=== PATIENT | male | born 1975 | race Caucasian/White ===

== ENCOUNTER 2018-04-14 21:41 | Inpatient (IN) | payer OTHER ==
[~2018-04-14] VITALS: Ht 167.6 cm; Wt 106.6 kg
[~2018-04-14 21:41] MED LIST: AUGMENTIN 875-1 EACH PO; FLONASE 0.05%50 MCG NASAL; PRILOSEC OTC20 MG PO; PROMETHAZINE-D120 ML PO; VENTOLIN HFA INH8 GM IH
[2018-04-14 21:46] VITALS: BP 128/85
[2018-04-14] MEDS ORDERED: BRINTELLIX5 MG PO (21:53)
[2018-04-14 22:34] LABS: HEMOGLOBIN 14.1 gm/dL (14.0-18.0); MCH 30.5 pg (26.0-34.0); MCHC 34.4 g/dL (28.0-37.0); MCV 88.8 fL (80.0-100.0); NUCLEATED RBCS 0 /100WBC; PLATELET COUNT* 106 thou/uL (150-400); RBC 4.62 mil/uL (4.50-6.00); RDW-CV 13.4 % (10.5-14.5); WBC 10.2 thou/uL (4.0-11.0)
[2018-04-14 22:42] LABS: CALCIUM 8.5 mg/dL (8.5-10.1); CREATININE 1.2 mg/dL (0.6-1.3); POTASSIUM 3.5 mmol/L (3.5-5.1)
[2018-04-14 22:45] LABS: APTT 32.3 Seconds (25.0-31.3); INR 1.1; PROTIME 11.4 Seconds (9.20-11.50)
[2018-04-14 22:47] LABS: TOTAL BILIRUBIN 1.2 mg/dL (<0.1-1.0); TOTAL PROTEIN 6.9 g/dL (6.4-8.2)
[2018-04-14 23:05] LABS: ABSOLUTE BASOPHILS 0.1 thou/uL (0.0-0.2); ABSOLUTE LYMPHOCYTES 0.3 thou/uL (0.8-5.3); ABSOLUTE MONOCYTES 0.7 thou/uL (0.0-1.2); ABSOLUTE NEUTROPHILS 9.1 thou/uL (1.6-8.1); PLATELET ESTIMATE DECREASED
[2018-04-14 23:06] LABS: ANISOCYTOSIS 1+; TOXIC GRANULATION 1+
[2018-04-14 23:52] VITALS: BP 116/80
[2018-04-15 01:15] VITALS: BP 119/78
--- NOTE | 2018-04-15 01:49 | NUR ---
PATIENT ARRIVED FROM ER ALERT AND ORIENTED. ORIENTED TO ROOM AND BED CONTROLS. PO PAIN MEDICATION GIVEN. ASSESSMENT CHARTED. RIGHT FOOT RED AND SWOLLEN AND TENDER TO TOUCH. BED ALARM ON AND AT BEDSIDE.
--- NOTE | 2018-04-15 06:56 | NUR ---
ALERT AND ORIENTED X4. RIGHT FOOT REMAINS SWOLLEN AND RED. RED AREAS ON LOWER LEG MARKED WITH OUTLINE. AT BEDSIDE. TRIED IV AND PO PAIN MEDICATION TO HELP WITH BACK AND RIGHT LEG PAIN WITH ONLY A LITTLE RELIEF. DR ROBERT THIS AM AND NEW ORDER NOTED. CALL LIGHT WITHIN REACH.
[2018-04-15 10:02] VITALS: BP 120/82
[2018-04-15 14:38] LABS: ABSOLUTE LYMPHOCYTES 0.6 thou/uL (0.8-5.3); ABSOLUTE MONOCYTES 0.8 thou/uL (0.0-1.2); ABSOLUTE NEUTROPHILS 6.6 thou/uL (1.6-8.1); BASOPHILS 0.4 %; EOSINOPHILS 0.1 %; HEMATOCRIT 38.9 % (42.0-52.0); HEMOGLOBIN 13.4 gm/dL (14.0-18.0); LYMPHOCYTES 7.2 %; MCH 30.6 pg (26.0-34.0); MCHC 34.4 g/dL (28.0-37.0); MONOCYTES 9.5 %; MPV 7.8 fl. (7.2-11.1); NUCLEATED RBCS 0 /100WBC; PLATELET COUNT* 115 thou/uL (150-400); POLYS 82.8 %; RBC 4.37 mil/uL (4.50-6.00); RDW-CV 13.4 % (10.5-14.5)
[2018-04-15 14:52] LABS: ALBUMIN 2.8 g/dL (3.4-5.0); CALCIUM 8.2 mg/dL (8.5-10.1); CREATININE 1.5 mg/dL (0.6-1.3); POTASSIUM 3.4 mmol/L (3.5-5.1); TOTAL BILIRUBIN 1.2 mg/dL (<0.1-1.0); TOTAL PROTEIN 6.7 g/dL (6.4-8.2)
--- NOTE | 2018-04-15 17:05 | NUR ---
ASSUMED CARE OF PATIENT AFTER MORNING REPORT AT APPROX 0740. ALERT AND ORIENTED X4. ASSESSMENT COMPLETED AND CHARTED. VSS ON ROOM AIR. PATIENT HAS NO COMPLAINTS OF NAUSEA, OR SOA. COMPLAINTS OF SEVERE BACK PAIN, BEING MANAGED WITH PAIN MEDICATION AND MUSCLE RELAXERS. FLUIDS AND ANTIBIOTICS INFUSED ORDERED. PATIENT HAD AN MRI OF THE RIGHT FOOT WHICH SHOWS CELLULITIS. BLOOD CULTURES FROM BOTH SOURCES ARE POSITIVE FOR GRAM POSITIVE COCCI. PATEINTS VITALS AT 1700 ARE 135/79, PULSE OF 100, TEMP 99.6. LIVER FUNCTION LABS ELEVATED. PATIENT IN BED LAYING ON HIS STOMACH DUE TO BACK PAIN, K-PAD APPLIED TO BACK. WILL NOTIFY PHYSICIAN OF VS CHANGES. HOURLY ROUNDS MAINTAINED, CALL LIGHT WITHIN REACH, NURSING WILL CONTINUE TO MONITOR.
[2018-04-15 17:12] VITALS: BP 135/79
--- NOTE | 2018-04-15 18:29 | NUR ---
SPOKE TO DR BRITO OVER THE PHONE, RELAYED RESULTS FROM MRI TO HIM AND SHARED LATEST VITALS WITH ELEVATED TEMP. HE STATED TO DISCONTINUE THE NPO AFTER MIDNIGHT ORDER, RESUME REGULAR DIET AND THAT HE WILL SEE THE PATIENT TOMORROW AFTERNOON TO DISCUSS FURTHER TREATMENT PLAN.
[2018-04-15 20:37] LABS: CALCIUM 7.8 mg/dL (8.5-10.1); CREATININE 1.4 mg/dL (0.6-1.3); MAGNESIUM 1.8 mg/dL (1.8-2.4); POTASSIUM 3.3 mmol/L (3.5-5.1)
[2018-04-15 21:30] VITALS: BP 121/75
[2018-04-15 23:58] VITALS: BP 127/76
[2018-04-16 04:00] VITALS: BP 125/84
[2018-04-16 04:29] LABS: HEMATOCRIT 36.5 % (42.0-52.0); HEMOGLOBIN 12.4 gm/dL (14.0-18.0); MCH 30.6 pg (26.0-34.0); MCHC 34.1 g/dL (28.0-37.0); MCV 89.9 fL (80.0-100.0); MPV 7.9 fl. (7.2-11.1); RBC 4.06 mil/uL (4.50-6.00); RDW-CV 13.5 % (10.5-14.5); WBC 7.9 thou/uL (4.0-11.0)
[2018-04-16 04:52] LABS: ALBUMIN 2.4 g/dL (3.4-5.0); CALCIUM 7.8 mg/dL (8.5-10.1); CREATININE 1.1 mg/dL (0.6-1.3); MAGNESIUM 1.8 mg/dL (1.8-2.4); POTASSIUM 3.6 mmol/L (3.5-5.1); TOTAL BILIRUBIN 1.1 mg/dL (<0.1-1.0)
--- NOTE | 2018-04-16 05:32 | NUR ---
ALERT AND ORIENTED X4. REMAINED IN BED THIS SHIFT. REPOSITIONING SELF. USING PO PAIN MEDICATION TO HELP WITH BACK AND RIGHT FOOT PAIN. NO C/O N/V. RIGHT FOOT REMAINS RED AND SWOLLEN WITH LIGHT PINK STREAKS ABOVE ANKLE. CONTINUES ON IV ANTIBIODICS AND IVF. CALL LIGHT WITHIN REACH.
[2018-04-16 08:35] VITALS: BP 140/95
[2018-04-16 14:41] LABS: CHOLESTEROL 114 mg/dL (<200); HDL CHOLESTEROL 9 mg/dL (>40); LDL CHOLESTEROL 49 mg/dL (<100); TC:HDL 12.7 Ratio (Not establshd); TRIGLYCERIDE 280 mg/dL (<150); VLDL 56 mg/dL (<40)
[2018-04-16 14:43] LABS: SERUM ASSESSMENT Clear
[2018-04-16 16:00] VITALS: BP 146/84
--- NOTE | 2018-04-16 18:03 | NUR ---
PT REMAINED ALERT AND ORIENTED THIS SHIFT. PT HAS CELLULITIS OF THE ELFT FOOT, SWELLING, REDNESS, AND PAIN AHVE DECREASED. CREAM ORDERED FOR ATHLETES FOOT INBETWEEN TOES. TUBIGRIPS ORDERED, WOUND CARE NURSE WILL APPLY IN THE MORNING. PT HAS C/O BACK PAIN, OXY IR AND IBUPROFEN GIVEN. K-PAD APPLIED TO BACK. US ABD ORDERED FOR TOMORROW, PT WILL BE NPO AFTER MIDNIGHT. VANC TROUGH TAKEN, LEVEL LOW, VANC DOSAGE INCREASED BY PHARMACY AND HUNG. CALL LIGHT IN REACH. WILL CONTINUE TO MONITOR.
[2018-04-16 23:56] VITALS: BP 124/94
[2018-04-17 05:09] LABS: GLYCOHEMOGLOBIN (HGB A1C) 5.2 % (4.8-5.6)
[2018-04-17 06:19] LABS: ALBUMIN 2.4 g/dL (3.4-5.0); POTASSIUM 4.1 mmol/L (3.5-5.1); TOTAL BILIRUBIN 1.1 mg/dL (<0.1-1.0); TOTAL PROTEIN 6.2 g/dL (6.4-8.2)
--- NOTE | 2018-04-17 06:36 | NUR ---
PT UP AND SHOWERED WITH ASSIST OF FAMILY BEFORE BED. RAC IVF INFUSING PER PUMP, ABX GIVEN ORDERED. PT HAS BEEN NPO SINCE MIDNIGHT FOR ABD US TODAY. HAS DENIED NEED FOR PAIN MED THIS SHIFT. AM LAB DRAWN. MRSA NEGATIVE. USING URINAL TO VOID OVERNIGHT. ABLE TO USE CALL LITE AND MAKE NEEDS KNOWN.
--- NOTE | 2018-04-17 07:54 | CON ---
[facility] [address] [place] [address] CONSULTATION Name: LIVIER GORMAN Room: [address] IN .R.#: [id number] Admission: 04/14/18 Attend Phys: Jhon Grubbs, Discharge: Date of : 71 Report #: [id number] THIS REPORT FOR: //name// CC: Parish Levy Jhon Grubbs DATE OF SERVICE: 04/16/2018 INFECTIOUS DISEASE CONSULTATION ATTENDING PHYSICIAN: Jhon Grubbs M.D. REASON FOR EVALUATION: Right distal lower extremity skin and soft tissue infection with cellulitis. HISTORY OF PRESENT ILLNESS: Chart reviewed, the patient examined. This is a 42-year-old with history of hypertension, who noted onset of inflammatory rash noted in the distal aspect of his right lower extremity, extended proximally. It became quite painful, difficult to bear weight. He was evaluated and placed on doxycycline; however, it seemed to progress. So, due to concerns about inadequate response to treatment, he presented to the Emergency Room. He did report chills and some fever subjectively. He denies any antecedent injury. No pulmonary or gastrointestinal-related complaints. He was empirically started on broad-spectrum antimicrobial therapy. He feels somewhat better today. He still has some degree of pain and discomfort, although it is less so. ALLERGIES: None known. MEDICATIONS: Include vancomycin, enoxaparin, Zosyn, cyclobenzaprine, oxycodone and ibuprofen. PAST MEDICAL HISTORY: As noted above, hypertension, history of anxiety, cholecystectomy and carpal tunnel surgery. SOCIAL HISTORY: A [id number]-[id number] history of smoker, occasional ethanol, chewing tobacco and illicit drug use. FAMILY HISTORY: Noncontributory. REVIEW OF SYSTEMS: As above. PHYSICAL EXAMINATION: GENERAL: Pleasant, alert and cooperative. He is in wrye-ro-gtdoybqi distress, appears to be generally well nourished. VITAL SIGNS: Temperature 98.6, pulse 90, respirations 14 and blood pressure 140/95. [place] [address] CONSULTATION Name: LIVIER GORMAN Room: [address]#: [id number] Admission: 04/14/18 Attend Phys: Jhon Grubbs, Discharge: Date of : 71 Report #: [id number] SKIN: Warm, dry. No rashes. HEENT: Otherwise, unremarkable. NECK: Supple. LUNGS: Clear to auscultation. HEART: Regular rate and rhythm, without murmur. ABDOMEN: Soft. It is mildly distended. There are no peritoneal signs. EXTREMITIES: The right lower extremity has moderate inflammatory changes. There appears to be hemolytic component with some contused areas over the lateral aspect of the distal foot. He does have the web space with a little bit of tinea pedis, I think, between the third and fourth toes. GENITOURINARY: Deferred. RECTAL: Deferred. LABORATORY DATA: Plain film of the foot, otherwise unremarkable. Electrolytes: Sodium 138, potassium 3.5, chloride 104, bicarbonate is 23, BUN and creatinine 14 and 1.2 and glucose of 106. AST of 50, ALT 57. Albumin of 3.0. Total protein 6.9. Estimated GFR of 66. Lactic acid initially was 1.1. CBC: White count of 10.2, H and H 14.1 and 41.0 and platelets of 106,000. MRI of the foot showed dorsal foot diffuse tissue edema, compatible with cellulitis. Nothing for osteomyelitis. Blood cultures are sterile thus far. ASSESSMENT AND PLAN: Right lower extremity skin and soft tissue infection with cellulitis. We will pare down therapy. I think vancomycin is reasonable as a single agent. We will add compression treatment for the tinea pedis, elevation when possible. If he is up, he needs to continue to move. We will see how he does over the course of the next 1-2 days, transition to oral antibiotics. <ELECTRONICALLY SIGNED> By: New Lopez MD 04/17/18 0754 [id number] [id number] Lopez MD /nt
[2018-04-17 07:57] VITALS: BP 152/94
[2018-04-17 10:10] LABS: HEPATITIS B SURFACE AG Negative (Negative)
--- NOTE | 2018-04-17 11:30 | NUR ---
PT.LIVES WITH HIS AND CHILDREN. 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 HE HAS CRUTCHES HE CAN USE. DISCUSSED KNEE SCOOTERS WITH , JOSE. GAVE HER NUMBER FOR MOBILITY FIRST IF WANTING TO RENT ONE. TOLD HER MANY PEOPLE PURCHASE ONE FROM [employer]. SHE THINKS SHE WILL PURCHASE ONE. HAS TRANSITITIONED PT.TO ORAL ANTIBIOTIC. NEEDS WOUND CARE CENTER APPT. HAS NOT BEEN IN YET AND PT.NEEDS TURBIGRIPS PLACED BY WOUND CARE PRIOR TO DISCHARGE. INFORMED PT.AND .
[2018-04-17 11:48] VITALS: BP 152/94
[2018-04-17 12:01] VITALS: BP 152/94
[2018-04-17] MEDS ORDERED: OXYCODONE HCL 55 MG PO (12:50)
[2018-04-17 12:51] VITALS: BP 152/94
[2018-04-17] MEDS ORDERED: MINOCIN50 MG PO (12:51)
--- NOTE | 2018-04-17 13:32 | NUR ---
NURSING DOCUMENTATION BY CAMILLA Denney RN REVIEWED
[2018-04-17 13:35] VITALS: BP 152/94
--- NOTE | 2018-04-17 13:36 | NUR ---
PT GIVEN DISCHARGE INFORMATION AND PRESCRIPTIONS. HOME MEDS GIVEN TO PT. IV REMOVED. PT LEFT FACILITY WITH SPOUSE VIA WHEELCHAIR WITH NURSING STAFF TO HOME CARE.
--- NOTE | 2018-04-18 12:23 | CON ---
[address] [address] CONSULTATION Name: LIVIER GORMAN Room: [address] IN ..#: [id number] Admission: 04/14/18 Attend Phys: Jhon Grubbs, Discharge: 04/17/18 Date of : 71 Report #: [id number] THIS REPORT FOR: //name// CC: Parish Levy Jhon Grubbs DATE OF SERVICE: 04/16/2018 CHIEF COMPLAINT: Followup of cellulitis to right lower extremity with source to the right third interdigital space, possible tinea pedis or a fissure, which became secondarily infected. He is on parenteral vancomycin and Zosyn with good tolerance. He has been afebrile, still has some sweats. Blood culture positive for gram-positive cocci, pending growth on solid media. He has good appetite. MRI was negative for abscess or osteomyelitis. LABORATORY DATA: WBC 7.9, RBC 4.06, hemoglobin 12.4, hematocrit 36.5, platelets 109. BUN 12, creatinine 1.1, glucose 102. PHYSICAL EXAMINATION: Inflammation is decreased to the right lower extremity, but still rather advanced. No open lesions or drainage from the right third interdigital space. No fluctuance or crepitation to the foot. No signs of abscess. No popliteal adenopathy. No signs of acute vascular changes. Overall clinical picture is moderately improved. IMPRESSION: Resolving cellulitis, right lower extremity with interdigital lesion. PLAN: I wrote an order for Tubigrip to the extremity for compression, may ambulate as tolerated, but limited; rest, elevate, maximize hydration. We will follow tomorrow. <ELECTRONICALLY SIGNED> By: Bladimir Cheema DPM 04/18/18 1223 1652 [id number] Cheema DPM /nt
--- NOTE | 2018-04-18 12:23 | CON ---
[facility] [address] [place] [address] CONSULTATION Name: LIVIER GORMAN Room: [address] IN [facility]#: [id number] Admission: 04/14/18 Attend Phys: Jhon Grubbs, Discharge: 04/17/18 Date of : 71 Report #: [id number] THIS REPORT FOR: //name// CC: Parish Goodennton Jhon Grubbs DATE OF SERVICE: 04/17/2018 CHIEF COMPLAINT: Followup of cellulitis to left lower extremity with lesion to left third interdigital space. He is on parenteral vancomycin and Zosyn, and planned discharge today on oral minocycline 100 mg p.o. b.i.d. The wound nurse will place a Tubigrip stockinette to the left lower extremity for edema control. He has been afebrile with good appetite. He relates decreased pain to the left leg. Denies fevers, chills, nausea or malaise. Denies chest pain or shortness of breath. LABORATORY DATA: WBC 7.9, RBC 4.06, hemoglobin 12.4, hematocrit 36.5, platelets 109. BUN 13, creatinine 1.0, glucose 96. PHYSICAL EXAMINATION: Inflammation significantly decreased in the left lower extremity, although still fairly significant. Negative tenderness to the left calf, no Homans or Richardson's sign in either extremity. No open lesion to the left third interdigital space. No fluctuance or crepitation of the distal foot. No blisters or open lesions. The cellulitis is still moderate, but decreased since yesterday. IMPRESSION: Resolving cellulitis, left lower extremity with fissure to the left third interdigital space. PLAN: Continue clotrimazole cream to the interdigital space and wear the below-knee Tubigrip stockinette for edema control. Rest, elevate the extremity and minimize weightbearing. I will follow up with the patient at [facility] with Dr. Lopez. <ELECTRONICALLY SIGNED> By: Bladimir Cheema DPM 04/18/18 1223 1223 [id number] Cheema DPM /nt
--- NOTE | 2018-04-18 12:23 | CON ---
[address] [address] CONSULTATION Name: LIVIER GORMAN Room: [address] IN [facility].#: [id number] Admission: 04/14/18 Attend Phys: Jhon Grubbs, Discharge: 04/17/18 Date of : 71 Report #: [id number] THIS REPORT FOR: //name// CC: Parish Goodennton Jhon Grubbs DATE OF SERVICE: 04/15/2018 REASON FOR CONSULTATION: Cellulitis to right foot with wound to the third interdigital space x 4 days. CHIEF COMPLAINT AND HISTORY OF PRESENT ILLNESS: The patient is a 42-year-old male, who noticed acute onset of pain, swelling and redness to the right foot 4 days ago. He wears work boots, he denies trauma to the area. He presented to an urgent care center and was placed on oral doxycycline 3 days ago. The inflammation worsened, and he developed fevers, chills and night sweats. He presented to [facility] yesterday and was admitted. He is on parenteral vancomycin and Zosyn with good tolerance. He relates significant pain to the foot, currently low-grade fevers and sweats. He had one positive blood culture with gram-positive cocci. MRI was ordered to be performed tonight. Foot x-rays were negative for bone destruction or gas in the soft tissue. He denies type 2 diabetes mellitus. LABORATORY DATA: WBC 8.0, RBC 4.37, hemoglobin 13.4, hematocrit 38.9 and platelets 115,000. BUN 14, creatinine 1.2 and glucose 106. PHYSICAL EXAMINATION: Right foot is very edematous, with cellulitis extending up the anterior lateral leg. There is a thin fissure between the right third and fourth toes at the third interdigital space. There is no drainage or expressible material to culture. The area is somewhat fluctuant. No crepitation noted. No blisters to the skin. The focus of the infection is the third interdigital space. He has palpable dorsalis pedis and posterior tibial pulses bilaterally, with normal pedal hair growth. Negative Homans' or Richardson sign in either extremity. No popliteal adenopathy. IMPRESSION: Cellulitis, right foot; wound to third interdigital space, possible abscess with septicemia. PLAN: MRI to be performed tonight. We will keep the patient n.p.o. for possible incision and drainage tomorrow. <ELECTRONICALLY SIGNED> By: Bladimir Cheema DPM 04/18/18 1223 1511 [id number] Cheema DPM /erin
== END 2018-04-17 13:37 | disposition home or self-care (01) | DRG 872 ==
LOC: M.ERS 21:41 → M.ORTHSURG 23:23 → M.TBA-ER 23:23 → M.ORTHSURG 04-15 00:05
PROVIDERS: Internal Medicine; Nurse Practitioner Family; ADMIT Family Medicine
DX: A41.9 Sepsis, unspecified organism (principal); L03.115 Cellulitis of right lower limb; B17.9 Acute viral hepatitis, unspecified; I10 Essential (primary) hypertension; F41.9 Anxiety disorder, unspecified; B35.3 Tinea pedis; F17.210 Nicotine dependence, cigarettes, uncomplicated; E66.9 Obesity, unspecified; I87.8 Other specified disorders of veins; Z79.899 Other long term (current) drug therapy; Z91.018 Allergy to other foods; Z90.49 Acquired absence of other specified parts of digestive tract; Z82.49 Family history of ischemic heart disease and other diseases of the circulatory system; Z68.37 Body mass index [BMI] 37.0-37.9, adult

== ENCOUNTER 2018-04-18 13:52 | Inpatient (IN) | payer OTHER ==
[~2018-04-18] VITALS: Ht 165.1 cm; Wt 106.6 kg
[~2018-04-18 13:52] MED LIST changes: +BRINTELLIX5 MG PO; +MINOCIN50 MG PO; +OXYCODONE HCL 55 MG PO
[2018-04-18 15:21] VITALS: BP 133/89
[2018-04-18 15:48] LABS: ABSOLUTE BASOPHILS 0.1 thou/uL (0.0-0.2); ABSOLUTE EOSINOPHILS 0.4 thou/uL (0.0-0.7); ABSOLUTE LYMPHOCYTES 1.3 thou/uL (0.8-5.3); ABSOLUTE MONOCYTES 1.2 thou/uL (0.0-1.2); ABSOLUTE NEUTROPHILS 5.9 thou/uL (1.6-8.1); BASOPHILS 1.3 %; EOSINOPHILS 4.1 %; HEMATOCRIT 41.5 % (42.0-52.0); HEMOGLOBIN 14.2 gm/dL (14.0-18.0); LYMPHOCYTES 14.8 %; MCH 30.2 pg (26.0-34.0); MCHC 34.3 g/dL (28.0-37.0); MCV 87.9 fL (80.0-100.0); MONOCYTES 13.8 %; NUCLEATED RBCS 0 /100WBC; RBC 4.72 mil/uL (4.50-6.00); RDW-CV 14.1 % (10.5-14.5); WBC 8.9 thou/uL (4.0-11.0)
[2018-04-18 15:56] LABS: PLATELET COUNT* 191 thou/uL (150-400)
[2018-04-18 15:59] LABS: CALCIUM 7.9 mg/dL (8.5-10.1); CREATININE 0.9 mg/dL (0.6-1.3); POTASSIUM 3.2 mmol/L (3.5-5.1)
[2018-04-18 16:13] LABS: ALBUMIN 2.7 g/dL (3.4-5.0); TOTAL BILIRUBIN 0.7 mg/dL (<0.1-1.0); TOTAL PROTEIN 7.1 g/dL (6.4-8.2)
[2018-04-18 20:20] VITALS: BP 142/89
[2018-04-19 04:28] LABS: ABSOLUTE BASOPHILS 0.1 thou/uL (0.0-0.2); ABSOLUTE EOSINOPHILS 0.5 thou/uL (0.0-0.7); ABSOLUTE LYMPHOCYTES 2.2 thou/uL (0.8-5.3); ABSOLUTE MONOCYTES 1.2 thou/uL (0.0-1.2); ABSOLUTE NEUTROPHILS 5.5 thou/uL (1.6-8.1); BASOPHILS 0.7 %; EOSINOPHILS 5.3 %; HEMATOCRIT 38.2 % (42.0-52.0); HEMOGLOBIN 13.1 gm/dL (14.0-18.0); LYMPHOCYTES 23.3 %; MCH 30.3 pg (26.0-34.0); MCHC 34.2 g/dL (28.0-37.0); MCV 88.7 fL (80.0-100.0); NUCLEATED RBCS 0 /100WBC; PLATELET COUNT* 197 thou/uL (150-400); POLYS 57.7 %; RBC 4.31 mil/uL (4.50-6.00); WBC 9.6 thou/uL (4.0-11.0)
[2018-04-19 04:39] LABS: CALCIUM 8.1 mg/dL (8.5-10.1); CREATININE 0.9 mg/dL (0.6-1.3)
[2018-04-19 04:41] LABS: POTASSIUM 4.2 mmol/L (3.5-5.1)
[2018-04-19 09:15] VITALS: BP 147/87
[2018-04-19 15:27] VITALS: BP 135/90
--- NOTE | 2018-04-19 15:34 | 2DMMODE ---
[place] [address] 2 D/M-MODE ECHOCARDIOGRAM Name: LIVIER GORMAN Room: [address] IN [facility]#: [id number] Admission: 04/18/18 Attend Phys: Eliazar Lam, Discharge: Date of : 71 Date of Service: 04/19/18 1534 Report #: [id number] THIS REPORT FOR: //name// APPROVED REPORT Study performed: 04/19/2018 09:25:09 EXAM: Comprehensive 2D, Doppler, and color-flow Echocardiogram Patient Location: In-Patient Room #: [facility] Status: routine BSA: 2.12 HR: 82 bpm BP: 142/89 mmHg Rhythm: NSR Other Information Study Quality: Good Indications Sepsis 2D Dimensions IVSd: 10.87 (7-11mm) LVOT Diam: 21.40 (18-24mm) LVDd: 50.60 mm PWd: 10.34 (7-11mm) Ascending Ao: 33.88 (22-36mm) LVDs: 26.87 (25-40mm) Aortic Root: 29.26 mm Volumes Left Atrial Volume (Systole) LA ESV Index: 24.70 mL/m2 Aortic Valve AoV Peak Corbin.: 1.75 m/s AO Peak Gr.: 12.22 mmHg LVOT Max P.87 mmHg AO Mean Gr.: 6.05 mmHg LVOT Mean P.63 mmHg LVOT Max V: 1.40 m/s AO V2 VTI: 29.79 cm LVOT Mean V: 0.86 m/s SHAN (VTI): 2.97 cm2 LVOT V1 VTI: 24.64 cm Mitral Valve E/A Ratio: 1.05 MV Decel. Time: 188.55 ms MV E Max Corbin.: 0.76 m/[place] [address] 2 D/M-MODE ECHOCARDIOGRAM Name: LIVIER GORMAN Room: [address] IN [facility]#: [id number] Admission: 04/18/18 Attend Phys: Eliazar Lam, Discharge: Date of : 71 Date of Service: 04/19/18 1534 Report #: [id number] MV PHT: 54.68 ms MVA (PHT): 4.02 cm2 TDI E/Lateral E': 5.43 E/Medial E': 8.44 Medial E' Corbin.: 0.09 m/s Lateral E' Corbin.: 0.14 m/s Pulmonary Valve PV Peak Corbin.: 1.23 m/s PV Peak Gr.: 6.01 mmHg Left Ventricle The left ventricle is normal size. There is normal LV segmental wall motion. There is normal left ventricular wall thickness. Left ventricular systolic function is normal. LVEF is 60-65%. The left ventricular diastolic function is normal. Right Ventricle The right ventricle is normal size. The right ventricular systolic function is normal. Atria The left atrium size is normal. The right atrium size is normal. Aortic Valve The aortic valve is normal in structure. No aortic regurgitation is present. There is no aortic valvular stenosis. Mitral Valve The mitral valve is normal in structure. There is no mitral valve regurgitation noted. No evidence of mitral valve stenosis. Tricuspid Valve The tricuspid valve is normal in structure. Trace tricuspid regurgitation. Pulmonic Valve The pulmonary valve is normal in structure. Mild pulmonic regurgitation. Great Vessels The aortic root is normal in size. IVC is normal in size and collapses with >50% [place] [address] 2 D/M-MODE ECHOCARDIOGRAM Name: LIVIER GORMAN Room: [address]#: [id number] Admission: 04/18/18 Attend Phys: Eliazar Lam, Discharge: Date of : 71 Date of Service: 04/19/18 1534 Report #: [id number] There is no pericardial effusion. <Conclusion> The left ventricle is normal size. There is normal left ventricular wall thickness. Left ventricular systolic function is normal. LVEF is 60-65%. The left ventricular diastolic function is normal. Trace tricuspid regurgitation. IVC is normal in size and collapses with >50% inspiration <ELECTRONICALLY SIGNED> By: Zaire Aleman MD, FACC 04/19/18 1534 1534 [id number] Zaire Aleman MD, FACC /INF
[2018-04-19 21:30] VITALS: BP 124/83
[2018-04-20 04:35] LABS: ABSOLUTE BASOPHILS 0.1 thou/uL (0.0-0.2); ABSOLUTE EOSINOPHILS 0.4 thou/uL (0.0-0.7); ABSOLUTE LYMPHOCYTES 2.3 thou/uL (0.8-5.3); ABSOLUTE MONOCYTES 1.2 thou/uL (0.0-1.2); ABSOLUTE NEUTROPHILS 7.4 thou/uL (1.6-8.1); BASOPHILS 0.7 %; EOSINOPHILS 3.9 %; HEMATOCRIT 39.4 % (42.0-52.0); HEMOGLOBIN 13.2 gm/dL (14.0-18.0); LYMPHOCYTES 20.3 %; MCH 29.9 pg (26.0-34.0); MCHC 33.4 g/dL (28.0-37.0); MCV 89.4 fL (80.0-100.0); MONOCYTES 10.6 %; MPV 8.2 fl. (7.2-11.1); NUCLEATED RBCS 0 /100WBC; PLATELET COUNT* 254 thou/uL (150-400); POLYS 64.5 %; RBC 4.41 mil/uL (4.50-6.00); RDW-CV 14.2 % (10.5-14.5); WBC 11.4 thou/uL (4.0-11.0)
[2018-04-20 05:00] LABS: ALBUMIN 2.7 g/dL (3.4-5.0); CALCIUM 7.9 mg/dL (8.5-10.1); CREATININE 0.9 mg/dL (0.6-1.3); POTASSIUM 4.1 mmol/L (3.5-5.1); TOTAL BILIRUBIN 0.7 mg/dL (<0.1-1.0); TOTAL PROTEIN 7.3 g/dL (6.4-8.2)
[2018-04-20 08:45] VITALS: BP 119/84
[2018-04-20] MEDS ORDERED: AMOXICILLIN 50500 MG PO (10:47)
[2018-04-20 11:24] VITALS: BP 124/83
[2018-04-20 12:25] VITALS: BP 124/83
== END 2018-04-20 12:30 | disposition home or self-care (01) | DRG 872 ==
LOC: M.ORTHSURG 13:52
PROVIDERS: ADMIT Internal Medicine
DX: A40.0 Sepsis due to streptococcus, group A (principal); L03.115 Cellulitis of right lower limb; I10 Essential (primary) hypertension; F41.9 Anxiety disorder, unspecified; F17.210 Nicotine dependence, cigarettes, uncomplicated; E87.6 Hypokalemia; Z90.49 Acquired absence of other specified parts of digestive tract; Z91.018 Allergy to other foods

== ENCOUNTER → 2018-04-25 | Outpatient (CLI) | payer OTHER ==
[~2018-04-25] MED LIST changes: +AMOXICILLIN 50500 MG PO
== END ==
LOC: M.WC 12:45
DX: L03.115 Cellulitis of right lower limb (principal); B35.3 Tinea pedis; I10 Essential (primary) hypertension; F41.9 Anxiety disorder, unspecified

== ENCOUNTER → 2018-05-09 | Outpatient (CLI) | payer OTHER | LOC: M.ULTRA 08:52 | DX: M79.89 Other specified soft tissue disorders (principal); L03.115 Cellulitis of right lower limb; M79.671 Pain in right foot; R09.89 Other specified symptoms and signs involving the circulatory and respiratory systems; I10 Essential (primary) hypertension ==

== ENCOUNTER → 2018-05-17 | Outpatient (CLI) | payer OTHER | LOC: M.ULTRA 12:47 | DX: L03.119 Cellulitis of unspecified part of limb (principal); R09.89 Other specified symptoms and signs involving the circulatory and respiratory systems ==

== ENCOUNTER → 2021-01-19 | Outpatient (CLI) | payer OTHER ==
[2021-01-19 11:58] LABS: ABSOLUTE EOSINOPHILS 0.1 thou/uL (0.0-0.7); ABSOLUTE LYMPHOCYTES 1.8 thou/uL (0.8-5.3); ABSOLUTE MONOCYTES 0.5 thou/uL (0.0-1.2); ABSOLUTE NEUTROPHILS 2.8 thou/uL (1.6-8.1); BASOPHILS 0.8 %; EOSINOPHILS 1.6 %; HEMATOCRIT 41.9 % (42.0-52.0); HEMOGLOBIN 14.6 gm/dL (14.0-18.0); LYMPHOCYTES 34.7 %; MCH 31.3 pg (26.0-34.0); MCHC 34.8 g/dL (28.0-37.0); MCV 89.8 fL (80.0-100.0); MONOCYTES 8.8 %; NUCLEATED RBCS 0 /100WBC; PLATELET COUNT* 187 thou/uL (150-400); POLYS 54.1 %; RBC 4.67 mil/uL (4.50-6.00); WBC 5.2 thou/uL (4.0-11.0)
[2021-01-19 12:05] LABS: ALBUMIN 4.3 g/dL (3.4-5.0); ALKALINE PHOSPHATASE 56 U/L (46-116); ANION GAP 8 mmol/L (7-16); BUN 14 mg/dL (7-18); CALCIUM 8.8 mg/dL (8.5-10.1); CHLORIDE 106 mmol/L (98-107); CHOLESTEROL 171 mg/dL (<200); CO2 27 mmol/L (21-32); GLUCOSE 92 mg/dL (70-99); HDL CHOLESTEROL 45 mg/dL (>40); LDL CHOLESTEROL 107 mg/dL (<100); SGOT 32 U/L (15-37); SGPT 39 U/L (30-65); SODIUM 141 mmol/L (136-145); TC:HDL 3.8 Ratio (Not establshd); TOTAL BILIRUBIN 0.5 mg/dL (<0.1-1.0); TOTAL PROTEIN 7.7 g/dL (6.4-8.2); TRIGLYCERIDE 98 mg/dL (<150); VLDL 20 mg/dL (<40)
[2021-01-19 12:07] LABS: SERUM ASSESSMENT Clear
[2021-01-20 07:09] LABS: GLYCOHEMOGLOBIN (HGB A1C) 5.3 % (4.8-5.6)
== END ==
LOC: M.LAB 11:30
PROVIDERS: ATTEND Family Medicine
DX: Z00.00 Encounter for general adult medical examination without abnormal findings (principal); I10 Essential (primary) hypertension; R53.83 Other fatigue; R73.09 Other abnormal glucose; M54.5 Low back pain; M47.815 Spondylosis without myelopathy or radiculopathy, thoracolumbar region; M25.78 Osteophyte, vertebrae